=== PATIENT | male | born 1990 | race Caucasian/White ===

== ENCOUNTER 2024-04-12 14:57 | Emergency (ER) | payer OTHER, SELFPAY ==
[2024-04-12 14:38] VITALS: TEMP 37.1
--- NOTE | 2024-04-12 14:53 | PC.NURSE ---
Tourniquet applied to left arm to stop bleeding at 1445
--- NOTE | 2024-04-12 15:20 | ED.PSYCH ---
HPI - Psych General Chief Complaint: Psychiatric Symptoms <Jason Farley MD - Last Filed: 04/12/24 15:37> Stated Complaint: suicide attempt <Jason Farley MD - Last Filed: 04/12/24 15:37> Time Seen by Provider: 04/12/24 15:20 <Jason Farley MD - Last Filed: 04/12/24 15:37> History of Present Illness HPI Narrative: Patient is a 33-year-old male who presents ER with a suicide attempt. He was in argument with his and she is going to leave him. He went to the park and used a razor blade to lacerate his left antecubital fossae. He was found bleeding in the park. Tetanus is not up-to-date. <Jason Farley MD - Last Filed: 04/12/24 15:37> Review of Systems Review of Systems: All systems reviewed & are unremarkable except as noted in HPI and below <Jason Farley MD - Last Filed: 04/12/24 15:37> Constitutional: Constitutional: Reports no additional constitutional complaints <Jason Farley MD - Last Filed: 04/12/24 15:37> Musculoskeletal: Musculoskeletal: Reports no additional musculoskeletal complaints <Jason Farley MD - Last Filed: 04/12/24 15:37> Neurologic: Reports system reviewed and no additional complaints, except as documented <Jason Farley MD - Last Filed: 04/12/24 15:37> Psychiatric: Psychiatric: Denies anxiety, Reports depression, Denies homicidal ideation and Reports suicidal ideation <Jason Farley MD - Last Filed: 04/12/24 15:37> PMFSH Past Medical History Medical History: Medical History (Updated 04/12/24 @ 17:30 by Aileen Grady PA-C) Healthy adult male <Jason Farley MD - Last Filed: 04/12/24 15:37> Surgical History Surgical History: Surgical History (Updated 04/12/24 @ 15:29 by Jason Farley MD) No pertinent past surgical history <Jason Farley MD - Last Filed: 04/12/24 15:37> Exam Narrative: GENERAL: ill-appearing, well-nourished, and in no acute distress. HEAD: Normocephalic, atraumatic. ENT: Mucous membranes moist. CHEST: Clear to auscultation. No respiratory distress. HEART: Tachycardic and regular. Normal peripheral pulses. EXTREMITIES: Normal range of motion. No edema. SKIN: Warm, dry, no rash. Lacerations to bilateral an acute oval fossa a. Right AC with 4.5 cm laceration. Bleeding well controlled in this area. Left antecubital fossa with another 4.5 cm laceration with rapid venous hemorrhage NEURO: No focal deficits. Alert and oriented x3. PSYCH: Depressed and suicidal. <Jason Farley MD - Last Filed: 04/12/24 15:37> GENERAL: ill-appearing, well-nourished, and in no acute distress. HEAD: Normocephalic, atraumatic. ENT: Mucous membranes moist. CHEST: Clear to auscultation. No respiratory distress. HEART: Tachycardic and regular. Normal peripheral pulses. EXTREMITIES: Normal range of motion. No edema. SKIN: Warm, dry, no rash. Lacerations to bilateral antecubital fossa. Right AC with 4.5 cm laceration. Bleeding well controlled in this area. Left antecubital fossa with another 4.5 cm laceration with rapid venous hemorrhage NEURO: No focal deficits. Alert and oriented x3. PSYCH: Depressed and suicidal. <Aileen Grady PA-C - Last Filed: 04/12/24 17:30> Course Course Emergency Course: Bleeding controlled with placement 3 0 Vicryl to proximal and distal aspects of the horizontal laceration. I have been in contact with [facility] who have accepted the patient as a trauma transfer. Patient is tachycardic but is not hypotensive. His tetanus shot was updated in the ER. Dr. Hubbard is the accepting physician. <Jason Farley MD - Last Filed: 04/12/24 15:37> Vital Signs Vital signs: Vital Signs Temperature 98.7 F 04/12/24 14:38 Temperature 98.7 F 04/12/24 16:17 Pulse Rate 131 H 04/12/24 16:17 Respiratory Rate 15 04/12/24 16:17 Blood Pressure 189/96 H 04/12/24 16:17 Pulse Oximetry 100 04/12/24 16:17
--- NOTE | 2024-04-12 15:49 | PC.NURSE ---
1454-Tourniquet removed, pulses palpable 1512-Tourniquet reapplied per Dr. Farley 1517-Tourniquet removed, pulses palpable
[2024-04-12 16:17] VITALS: BP 189/96; PULSE 131; RESP 15; TEMP 37.1; O2SAT 100
== END 2024-04-12 16:19 | disposition short-term general hospital (02) ==
PROVIDERS: Emergency Provider Emergency Medicine
DX: S41.112A Laceration without foreign body of left upper arm, initial encounter (principal); S41.111A Laceration without foreign body of right upper arm, initial encounter; X78.8XXA Intentional self-harm by other sharp object, initial encounter
CPT/HCPCS: 12002; 99285